=== PATIENT | male | born 1945 | race Caucasian/White ===

== ENCOUNTER 2016-04-26 19:56 | Emergency (ER) | payer MEDICARE, OTHER | END 2016-04-26 20:58 | disposition home or self-care (01) | DX: I10 Essential (primary) hypertension (principal); E11.9 Type 2 diabetes mellitus without complications; Z79.84 Long term (current) use of oral hypoglycemic drugs ==

== ENCOUNTER 2016-08-15 13:12 | Outpatient (CLI) | payer MEDICARE, OTHER ==
--- NOTE | 2016-08-15 15:27 | XRAY Report ---
THREE VIEW LUMBAR SPINE: 08/15/2016 CLINICAL INDICATION: Back pain, right sciatica. FINDINGS: AP, lateral, and coned down views of the lumbar spine demonstrate mild degenerative disk a nd facet disease, with mild degenerative levoscoliosis. There is no evidence of compression fracture. Vascular calcifications are seen. The bowel gas pattern appears normal. IMPRESSION: MILD DEGENERATIVE CHANGES, WITH DEGENERATIVE LEVOSCOLIOSIS. JOB #: [id number] EXT JOB #:[id number]
== END 2016-08-15 13:13 | disposition home or self-care (01) ==
LOC: DI 13:12
PROVIDERS: ATTEND Family Medicine
DX: M51.36 Other intervertebral disc degeneration, lumbar region (principal); M47.896 Other spondylosis, lumbar region; M41.56 Other secondary scoliosis, lumbar region
CPT/HCPCS: 72100

== ENCOUNTER 2018-06-26 10:25 | Emergency (ER) | payer MEDICARE, OTHER ==
[2018-06-26] MEDS ORDERED: BUPIVACAINE 0.5% PF 10 ML VIAL SUBQ STA (10:58)
--- NOTE | 2018-06-26 10:59 | ED Physician Documentation ---
PD HPI UPPER EXT INJURY - Stated complaint Stated Complaint: THUMB LAC - Chief complaint Chief Complaint: Ext Problem - History obtained from History obtained from: Patient - History of Present Illness Location: Left. No: Finger (thumb) Type of injury: Laceration Where injury occurred: Home Timing - onset: Today Timing - duration: Minutes Timing - details: Abrupt onset, Still present Improved by: Rest, Immobilization Worsened by: Moving, Palpating Associated symptoms: No: Weakness, Numbness, Tingling, Swelling Similar symptoms before: Diagnosis (laceration) Recently seen: Not recently seen - Additonal information Additional information: 73-year-old male with a laceration to his left thumb from his chain saw today presents to the emergency department for suturing. Is been able to control the bleeding with direct pressure he does not feel that the cut went deep does not feel that went to the bone. Review of Systems Constitutional: denies: Fever Respiratory: denies: Cough GI: denies: Vomiting : denies: Dysuria Skin: reports: Laceration (s) PD PAST MEDICAL HISTORY - Past Medical History Past Medical History: Yes Cardiovascular: Hypertension, Atrial fibrillation Endocrine/Autoimmune: Type 2 diabetes Musculoskeletal: Osteoarthritis - Past Surgical History Past Surgical History: Yes - Present Medications Home Medications: Ambulatory Orders Medication Instructions Recorded Confirmed Metformin HCl [Metformin HCl ER] 250 mg PO BID 06/21/12 04/26/16 Finasteride 5 mg PO DAILY 09/19/13 04/26/16 Multivitamin [Multivitamins] 1 each PO DAILY 09/19/13 04/26/16 [place]-3/Dha/Epa/Fish Oil [Fish Oil] 1,000 mg PO BID 09/19/13 04/26/16 Simvastatin 40 mg PO DAILY 09/19/13 04/26/16 Tamsulosin [Flomax] 0.4 mg PO DAILY 09/19/13 04/26/16 Cholestyramine/Aspartame 4 gm PO DAILY 04/26/16 04/26/16 [Cholestyramine Light Packet] - Allergies Allergies/Adverse Reactions: Allergies Allergy/AdvReac Type Severity Reaction Status Date / Time No Known Drug Allergies Allergy Verified 06/26/18 10:30 - Social History Does the pt smoke?: No Smoking Status: Former smoker Does the pt drink ETOH?: Yes Does the pt have substance abuse?: No - Immunizations Immunizations are current?: No Immunizations: TDAP >10years/unknown - POLST Patient has POLST: No PD ED PE NORMAL - Vitals Vital signs reviewed: Yes (normal ) - General General: Alert and oriented X 3, No acute distress, Well developed/nourished - HEENT HEENT: Atraumatic, PERRL, EOMI - Respiratory Respiratory: No respiratory distress - Derm Derm: Normal color, Warm and dry, No rash - Extremities Extremities: No deformity, No edema, Other (There is a macerated laceration to the left thumb radial surface with multiple superficial flaps. Deeper strucutures are not involved. disal n/v intact. 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 No osseous or articular abnormality. 2. Soft tissue abnormality in the distal aspect of the first finger, which may represent laceration. 3. DJD at the first MCP and IP joints, moderate to severe at IP joint), EMP read indepedently, See rad report Procedures - Laceration (location) left thumb Length in cm: 2.5 (multiple flaps) Wound type: Linear, Flap, Superficial, Clean Neurovascular status: Sensory intact, Motor intact, Vascular intact Tendon involvement: Tendon intact Anesthesia: Lidocaine 1%, Marcaine 0.5% (digital block), With bicarb Wound Preparation: Hibiclens, Wound explored, To the base Skin layer closure: Nylon, Interrupted, Size #-0 - enter number (5-0) Other: Patient tolerated well, No complications, Neurovascular intact, Dressing applied, Tetanus booster given Complexity: Simple PD MEDICAL DECISION MAKING - ED course Complexity details: considered differential, d/w patient, d/w family ED course: 73-year-old male with multiple linear flaps to the left thumb from a chainsaw laceration is blocked digitally and supplemented topically tolerates procedure well sutured and given a tetanus booster. Departure - Departure Disposition: 01 Home, Self Care Clinical Impression: Laceration of left thumb Qualifiers: Encounter type: initial encounter Damage to nail status: without damage Foreign body presence: without foreign body Qualified Code(s): S61.012A - Laceration without foreign body of left thumb without damage to nail, initial encounter Instructions: ED Laceration Hand Follow-Up: Erik Gonsales MD [Primary Care Provider] - Comments: Sutures should be removed in 7 to 10 days.
--- NOTE | 2018-06-26 11:07 | XRAY Report ---
Reason: chain saw injury Procedure Date: 06/26/2018 Accession Number: [id number] / [id number] Procedure: XR - Finger(s) LT CPT Code: FULL RESULT: EXAM: LEFT FIRST DIGIT RADIOGRAPHY EXAM DATE: 06/26/2018 10:38 AM. CLINICAL HISTORY: Chain saw injury. COMPARISON: None. TECHNIQUE: 3 views. FINDINGS: Bones: No acute fracture is demonstrated. Bones are demineralized. Joints: No dislocation or subluxation. There is moderate-severe joint space narrowing at the first interphalangeal joint. Mild joint space narrowing present at the first metacarpophalangeal joint. Soft Tissues: There is slight soft tissue irregularity at the distal aspect of the first finger. IMPRESSION: 1. No acute osseous or articular abnormality. 2. Mild soft tissue abnormality in the distal aspect of the first finger, which may represent laceration. 3. DJD at the first MCP and IP joints, moderate-severe at the IP joint. RADIA
[2018-06-26] MEDS ORDERED: BUFFERED LIDOCAINE 10 ML SYRINGE SUBQ STA (11:28)
[2018-06-26] MEDS ORDERED: TETANUS/DIPHTHERIA/PERTUSSIS 0.5 ML SYRINGE IM ONE (11:49)
[2018-06-26 12:09] VITALS: BP 132/82
== END 2018-06-26 12:20 | disposition home or self-care (01) ==
LOC: ED 10:25
DX: S61.012A Laceration without foreign body of left thumb without damage to nail, initial encounter (principal); W29.3XXA Contact with powered garden and outdoor hand tools and machinery, initial encounter; Y93.89 Activity, other specified; Y92.009 Unspecified place in unspecified non-institutional (private) residence as the place of occurrence of the external cause; Z23 Encounter for immunization; M18.12 Unilateral primary osteoarthritis of first carpometacarpal joint, left hand; I10 Essential (primary) hypertension; E11.9 Type 2 diabetes mellitus without complications; Z79.84 Long term (current) use of oral hypoglycemic drugs; Z87.891 Personal history of nicotine dependence
CPT/HCPCS: 12001; 73140; 90471; 99282; 99283

== ENCOUNTER 2018-07-06 07:08 | Emergency (ER) | payer MEDICARE, OTHER ==
[2018-07-06 07:20] VITALS: BP 140/80
--- NOTE | 2018-07-06 07:38 | ED Physician Documentation ---
PD HPI WOUND RECHECK - Stated complaint Stated Complaint: STITCH REMOVAL - Chief complaint Chief Complaint: Wound - Histroy obtained from History obtained from: Patient - History of Present Illness Location: Left Hand Timing - onset: How many days ago (10) Associated symptoms: No: Fever, Redness, Swelling, Drainage, Pain Similar symptoms before: Diagnosis (laceration) Recently seen: Emergency Dept - Additional information Additional information: 73-year-old male who lacerated his left thumb with a electric chainsaw 10 days ago had sutures placed here in the emergency department by myself and he is here now for suture removal. He does state that he had some numbness to his thumb for about a day following the procedure. He has no other specific complaints. Review of Systems Constitutional: denies: Fever Respiratory: denies: Cough GI: denies: Vomiting PD PAST MEDICAL HISTORY - Past Medical History Cardiovascular: Hypertension, Atrial fibrillation Endocrine/Autoimmune: Type 2 diabetes Musculoskeletal: Osteoarthritis - Past Surgical History Past Surgical History: Yes - Present Medications Home Medications: Ambulatory Orders Medication Instructions Recorded Confirmed Metformin HCl [Metformin HCl ER] 250 mg PO BID 06/21/12 04/26/16 Finasteride 5 mg PO DAILY 09/19/13 04/26/16 Multivitamin [Multivitamins] 1 each PO DAILY 09/19/13 04/26/16 [place]-3/Dha/Epa/Fish Oil [Fish Oil] 1,000 mg PO BID 09/19/13 04/26/16 Simvastatin 40 mg PO DAILY 09/19/13 04/26/16 Tamsulosin [Flomax] 0.4 mg PO DAILY 09/19/13 04/26/16 Cholestyramine/Aspartame 4 gm PO DAILY 04/26/16 04/26/16 [Cholestyramine Light Packet] - Allergies Allergies/Adverse Reactions: Allergies Allergy/AdvReac Type Severity Reaction Status Date / Time No Known Drug Allergies Allergy Verified 07/06/18 07:20 - Social History Does the pt smoke?: No Smoking Status: Never smoker Does the pt drink ETOH?: Yes Does the pt have substance abuse?: No - Immunizations Immunizations are current?: No Immunizations: TDAP >10years/unknown - POLST Patient has POLST: No PD ED PE NORMAL - Vitals Vital signs reviewed: Yes (hypertensive mild ) - General General: Alert and oriented X 3, No acute distress, Well developed/nourished - HEENT HEENT: Atraumatic, PERRL, EOMI - Respiratory Respiratory: No respiratory distress - Derm Derm: Normal color, Warm and dry, No rash - Extremities Extremities: No deformity, Other (healing wound to left thumb without inflamation ) - Neuro Neuro: Alert and oriented X 3, 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, No motor deficit, No sensory deficit, Normal speech Eye Opening: Spontaneous Motor: Obeys Commands Verbal: Oriented GCS Score: 15 - Psych Psych: Normal mood, Normal affect Results - Vitals Vitals: Vital Signs - 24 hr 07/06/18 07:17 Temperature 35.5 C L Heart Rate 92 Respiratory 20 Rate Blood Pressure 140/80 H O2 Saturation 95 Oxygen O2 Source Room air Procedures - Suture/staple Removal (location) left thumb Suture/staple removal: # sutures (8), No complications PD MEDICAL DECISION MAKING - ED course Complexity details: considered differential, d/w patient ED course: sutures removed Departure - Departure Disposition: 01 Home, Self Care Clinical Impression: Visit for suture removal Instructions: ED Wound Check Sutr Remove No Infec Follow-Up: Erik Gonsales MD [Primary Care Provider] -
== END 2018-07-06 07:40 | disposition home or self-care (01) ==
LOC: ED 07:08
DX: S61.012D Laceration without foreign body of left thumb without damage to nail, subsequent encounter (principal); I10 Essential (primary) hypertension; E11.9 Type 2 diabetes mellitus without complications; Z79.84 Long term (current) use of oral hypoglycemic drugs
CPT/HCPCS: 99281; 99283

== ENCOUNTER 2019-12-29 07:00 | Outpatient (CLI) | payer MEDICARE, OTHER ==
--- NOTE | 2019-12-30 14:15 | XRAY Report ---
PROCEDURE: Knee 3 View LT INDICATIONS: BILAT ARTHRITIS KNEE TECHNIQUE: 3 views of the bilateral knee(s) were acquired. COMPARISON: X-ray knee 12/13/2015 FINDINGS: Bones: No fractures or dislocations. There is moderate medial and patellofemoral compartment narrowi ng. Is relatively unchanged compared to prior exam. Periarticular osteophytes are present. Patellar o steophyte is noted. No suspicious bony lesions. No erosions. Soft tissues: Moderate joint effusion. No suspicious soft tissue calcifications. IMPRESSION: Moderate effusion with stable appearance of medial patellofemoral osteoarthritis. Reviewed by: Heaven Tamez MD on 12/30/2019 2:14 PM PST Approved by: Heaven Tamez MD on 12/30/2019 2:14 PM PST Station ID: [id number]
== END 2019-12-29 23:59 | disposition home or self-care (01) ==
LOC: DI 07:00
PROVIDERS: ATTEND Internal Medicine
DX: M17.12 Unilateral primary osteoarthritis, left knee (principal)